=== PATIENT | male | born 1940 | race Caucasian/White ===

== ENCOUNTER 2020-10-12 11:59 | Outpatient (CLI) | payer BC ==
[2020-10-12 17:38] LABS: PSA FREE 0.164 ng/mL (0.16-2.81)
[2020-10-12 17:40] LABS: PSA TOTAL 1.18 ng/mL (0.000-2.000)
== END 2020-10-12 12:00 | disposition home or self-care (01) ==
LOC: LAB.S 11:59
PROVIDERS: ATTEND Physician Assistant
DX: N40.1 Benign prostatic hyperplasia with lower urinary tract symptoms (principal); N13.8 Other obstructive and reflux uropathy
CPT/HCPCS: 36415; 84153; 84154

== ENCOUNTER 2021-11-09 08:35 | Outpatient (CLI) | payer BC ==
[2021-11-09 14:51] LABS: HCT - HEMATOCRIT 50.1 % (42.0-52.0); MEAN CORPUSCULAR HEMOGLOBIN 30.3 pg (27.0-31.0); MEAN CORPUSCULAR HGB CONC 31.9 g/dL (32.0-36.0); MEAN CORPUSCULAR VOLUME 94.9 fL (80.0-94.0); MEAN PLATELET VOLUME 10.6 fL (7.4-11.4); RED BLOOD COUNT 5.28 10^6/uL (4.70-6.10); RED CELL DISTRIBUTION WIDTH 14.3 % (12.0-15.0); WHITE BLOOD COUNT 4.5 x10^3/uL (4.8-10.8)
[2021-11-09 15:24] LABS: ALBUMIN 4.1 g/dL (3.2-5.5); ALBUMIN/GLOBULIN RATIO 1.5 (1.0-2.2); ALKALINE PHOSPHATASE 73 IU/L (42-121); ALT ALANINE AMINOTRANSFERASE 20 IU/L (10-60); AST ASPARTATE AMINOTRANSFERASE 28 IU/L (10-42); BUN - BLOOD UREA NITROGEN 28 mg/dL (6-20); CALCIUM 9.1 mg/dL (8.5-10.3); CARBON DIOXIDE - CO2 32 mmol/L (21-32); CHLORIDE 101 mmol/L (101-111); CHOL/HDL RATIO 2.8 (<5.0); CHOLESTEROL 174 mg/dL; CREATININE 1.1 mg/dL (0.6-1.2); GFR - MDRD 65 (>89); GLUCOSE 101 mg/dL (70-100); HDL CHOLESTEROL 63 mg/dL; LDL CHOLESTEROL,CALCULATED 102 mg/dL; LDL/HDL RATIO 1.6 (<3.6); POTASSIUM 4.5 mmol/L (3.5-5.0); SODIUM 139 mmol/L (135-145); TOTAL PROTEIN 6.8 g/dL (6.7-8.2); TRIGLYCERIDES 43 mg/dL; VLDL CHOLESTEROL 9 mg/dL
[2021-11-09 15:32] LABS: THYROID STIMULATING HORMONE 3.29 uIU/mL (0.34-5.60)
[2021-11-09 15:34] LABS: FREE T4 (FREE THYROXINE) 1.01 ng/dL (0.58-1.64)
[2021-11-09 20:07] LABS: ESTIMATED AVERAGE GLUCOSE 120 mg/dL (70-100); HEMOGLOBIN A1c% 5.8 % (4.27-6.07)
== END 2021-11-09 08:36 | disposition home or self-care (01) ==
LOC: LAB.S 08:35
PROVIDERS: ATTEND Family Medicine
DX: E03.9 Hypothyroidism, unspecified (principal); N40.1 Benign prostatic hyperplasia with lower urinary tract symptoms; N13.8 Other obstructive and reflux uropathy; E78.00 Pure hypercholesterolemia, unspecified; R73.03 Prediabetes
CPT/HCPCS: 36415; 80053; 80061; 83036; 83721; 84153; 84439; 84443; 85027

== ENCOUNTER → 2022-02-03 | Outpatient (CLI) | payer BC | END | disposition EMS.NT | LOC: EMS 00:08 | DX: M54.50 Low back pain, unspecified (principal); M79.605 Pain in left leg ==

== ENCOUNTER 2022-04-30 08:54 | Outpatient (CLI) | payer BC ==
[2022-04-30 15:35] LABS: CREATININE 1.2 mg/dL (0.6-1.2); POTASSIUM 4.5 mmol/L (3.5-5.0)
== END 2022-04-30 08:55 | disposition home or self-care (01) ==
LOC: LAB.S 08:54
PROVIDERS: ATTEND Physician Assistant
DX: E87.5 Hyperkalemia (principal)
CPT/HCPCS: 36415; 80048

== ENCOUNTER 2022-11-07 07:00 | Outpatient (CLI) | payer BC ==
--- NOTE | 2022-11-08 09:33 | XRAY Report ---
PROCEDURE: Hip w/Pelvis 2-3V LT INDICATIONS: LEFT LEG ATROPHY/PAIN IN LEFT LEG TECHNIQUE: AP pelvis with lateral view(s) of the left hip(s). COMPARISON: None. 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 Left hip prosthesis is in anatomic alignment. Lucency along t he femoral stent of the hip prosthesis. No fractures or dislocations. No suspicious bony lesions. 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 Soft tissues: No suspicious soft tissue calcifications or masses. IMPRESSION: PA left hip arthroplasty. There is lucency along the femoral stem of the hip prosthesis suggesting th e possibility of prosthesis loosening. Reviewed by: Julia Marquez MD on 11/08/2022 9:31 AM PDT Approved by: Julia Marquez MD on 11/08/2022 9:31 AM PDT Station ID: [id number]
== END 2022-11-07 23:59 | disposition home or self-care (01) ==
LOC: DI.S 07:00
PROVIDERS: ATTEND Registered Nurse
DX: M62.562 Muscle wasting and atrophy, not elsewhere classified, left lower leg (principal); R60.0 Localized edema; M79.662 Pain in left lower leg; Z96.642 Presence of left artificial hip joint

== ENCOUNTER 2023-06-19 07:00 | Outpatient (CLI) | payer BC ==
--- NOTE | 2023-06-20 11:36 | XRAY Report ---
PROCEDURE: Knee 3V LT INDICATIONS: LEFT KNEE PAIN TECHNIQUE: 3 views of the knee(s) were acquired. COMPARISON: None. FINDINGS: Bones: No fractures or dislocations. No suspicious bony lesions. Moderate to severe tricompartmen jojo arthritic change most severe medially. Small paratracheal or osteophytes are present. No distinct erosions. Soft tissues: Mild knee joint effusion. No suspicious soft tissue calcifications or masses. Chondro calcinosis is present. 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 Reviewed by: Keila Cifuentes MD on 06/20/2023 11:35 AM PDT Approved by: Keila Cifuentes MD on 06/20/2023 11:35 AM PDT Station ID: [id number]
--- NOTE | 2023-06-20 11:41 | XRAY Report ---
PROCEDURE: Hand 3+V RT INDICATIONS: RIGHT THUMB PAIN TECHNIQUE: 3 views of the hand(s) acquired. COMPARISON: None. FINDINGS: Bones: No fractures or dislocations. No suspicious bony lesions. Soft tissues: No suspicious soft tissue calcifications or masses. First digit soft tissue edema. IMPRESSION: First digit soft tissue edema. No visualized acute fracture or dislocation. However, occult injury ca nnot be excluded. Recommend short interval imaging follow-up in 7-10 days as clinically indicated for additional evaluation. Reviewed by: Keila Cifuentes MD on 06/20/2023 11:40 AM PDT Approved by: Keila Cifuentes MD on 06/20/2023 11:40 AM PDT Station ID: [id number]
--- NOTE | 2023-06-20 11:45 | XRAY Report ---
PROCEDURE: Elbow 3+V LT INDICATIONS: FALL/LEFT ELBOW PAIN TECHNIQUE: 3 views of the elbow were acquired. COMPARISON: None. FINDINGS: Bones: No fractures or dislocations. No suspicious bony lesions. Soft tissues: Mild effusion. No suspicious soft tissue calcifications or masses. IMPRESSION: Mild effusion. No visualized acute fracture or dislocation. However, occult injury cannot be excluded . Recommend short interval imaging follow-up in 7-10 days as clinically indicated for additional eval uation. Reviewed by: Keila Cifuentes MD on 06/20/2023 11:44 AM PDT Approved by: Keila Cifuentes MD on 06/20/2023 11:44 AM PDT Station ID: [id number]
== END 2023-06-19 23:59 | disposition home or self-care (01) ==
LOC: DI.S 07:00
PROVIDERS: ATTEND Registered Nurse
DX: M25.422 Effusion, left elbow (principal); R93.89 Abnormal findings on diagnostic imaging of other specified body structures; M17.12 Unilateral primary osteoarthritis, left knee